=== PATIENT | female | born 1945 | race Caucasian/White ===

== ENCOUNTER → 2021-11-01 | Outpatient (CLI) | payer OTHER | END | disposition home or self-care (01) | LOC: RAH 10:32 | PROVIDERS: ATTEND Internal Medicine | DX: S89.91XA Unspecified injury of right lower leg, initial encounter (principal); S83.206A Unspecified tear of unspecified meniscus, current injury, right knee, initial encounter; M17.11 Unilateral primary osteoarthritis, right knee; Z98.890 Other specified postprocedural states; X58.XXXA Exposure to other specified factors, initial encounter; Y93.89 Activity, other specified; Y92.89 Other specified places as the place of occurrence of the external cause; Y99.8 Other external cause status | CPT/HCPCS: 73721 ==

== ENCOUNTER → 2024-11-09 | Outpatient (CLI) | payer OTHER ==
--- NOTE | 2024-11-09 09:18 | HMCIMG ---
DEXA BONE DENSITY SURVEY REASON: Age-related osteoporosis without current pathological fracture COMPARISON: None TECHNIQUE: DEXA bone densitometry was performed in the lumbar spine and left hip. FINDINGS: Mean bone mass density in the spine is 0.727 g/sq cm, T score -2.9, consistent with osteoporosis. Femoral neck T score is -1.4 corresponding with osteopenia. IMPRESSION: 1. Osteoporosis indicating a high fracture risk.
--- NOTE | 2024-11-09 10:18 | HMCIMG ---
US ABDOMINAL COMPLETE REASON: RUQ PAIN COMPARISON: None FINDINGS: There is mild fatty infiltration of the liver. There are no focal mass lesions. The liver is not enlarged.There is a normal-appearing gallbladder. Kidneys appear normal in size and appearance. There is no evidence of mass, stone or hydronephrosis. Spleen and common duct appear normal. Aorta and inferior vena cava appear normal. The pancreas appears normal as well. There is a probable focal solid mass posterior and inferior to the pancreas measuring 4.1 x 3.9 x 4.7 cm. This may be lymphadenopathy in the right peritoneum or near the root of the mesentery. CT is recommended for further evaluation. IMPRESSION: 1. Focal 4.1 x 4.7 cm solid mass, probably in the mesentery, CT recommended for further evaluation. 2. Mild hepatic steatosis.
== END | disposition home or self-care (01) ==
LOC: RAH 07:48
PROVIDERS: ATTEND Internal Medicine
DX: K76.0 Fatty (change of) liver, not elsewhere classified (principal); M81.0 Age-related osteoporosis without current pathological fracture; R10.11 Right upper quadrant pain
CPT/HCPCS: 76700; 77080

== ENCOUNTER → 2024-11-25 | Outpatient (CLI) | payer OTHER ==
[~2024-11-25] MED LIST: IOHEXOL 350 MG/ML 100ML INFUS..BTL IV ONE
--- NOTE | 2024-11-25 11:08 | HMCIMG ---
CT ABDOMEN W/WO CONTRAST HISTORY: Intermittent right upper abdominal pain COMPARISON: None TECHNIQUE: Multiple sequential axial images of the abdomen were obtained from the dome of the diaphragm through iliac crests. Patient was given 100 cc of Isovue through intravenous route. Oral contrast was given. FINDINGS: No pleural effusion is seen bilaterally. There is no evidence of parenchymal disease or pulmonary nodule of the visualized lower lungs. Degenerative changes are seen of the thoracolumbar spine. Moderate size hiatal is seen. Liver measures 15.5 cm. The liver, spleen, adrenal glands and pancreas are unremarkable. There is no evidence of hydronephrosis bilaterally. No evidence of renal stone is seen. Fecal material is seen in the colon. There are normal-sized retroperitoneal and mesenteric lymph nodes. No ascites is seen. Atherosclerotic changes are present. No CT evidence of acute appendicitis is seen. IMPRESSION: 1. Fecal material is seen in the colon. No ascites is seen. Hiatal hernia. CT was performed with one or more following dose reduction techniques: automated exposure control, adjustment of the mA and kv according to patient's size, or use of a iterative reconstruction technique.
== END | disposition home or self-care (01) ==
LOC: RAH 09:52
PROVIDERS: ATTEND Internal Medicine
DX: K44.9 Diaphragmatic hernia without obstruction or gangrene (principal); R10.9 Unspecified abdominal pain; R68.89 Other general symptoms and signs; M47.815 Spondylosis without myelopathy or radiculopathy, thoracolumbar region
CPT/HCPCS: 74170; Q9967

== ENCOUNTER → 2024-12-31 | Outpatient (CLI) | payer OTHER ==
--- NOTE | 2024-12-31 16:06 | HMCIMG ---
LEFT HIP, INCLUDING AP PELVIS, RADIOGRAPHS - 3 VIEWS INDICATION: Left hip pain COMPARISON: None FINDINGS: No acute fracture or subluxation identified. Both femoral heads are well formed without osteochondral erosion or radiographic evidence for avascular necrosis. No radiopaque foreign body noted. IMPRESSION: No evidence for fracture or dislocation.
--- NOTE | 2024-12-31 16:06 | HMCIMG ---
RIGHT RIBS RADIOGRAPHS - 5 VIEWS INDICATION: Right rib pain COMPARISON: None FINDINGS: No rib fracture identified. No intrinsic osseous abnormality detected. Visualized portions of the right lung are clear. No radiopaque foreign body noted. IMPRESSION: No rib fracture identified.
--- NOTE | 2024-12-31 16:07 | HMCIMG ---
LUMBAR SPINE RADIOGRAPHS - 2-3 VIEWS INDICATION: Back pain COMPARISON: None FINDINGS: AP, lateral, and coned-down lateral views. Mild to moderate lumbar levoscoliosis with apex at the L2-L3 level. Normal lordotic curvature of the lumbar spine is maintained. Five nonrib-bearing lumbar vertebral bodies are noted. No acute fracture or subluxation identified. Vertebral body heights are well-maintained. Moderate disc height loss at the L5-S1 level. Multilevel mild to moderate anterior endplate osteophytic spurring. Multilevel mild to moderate facet disease is most pronounced along the lower lumbar spine levels. Extensive stool burden. Mild calcific plaque is noted along the abdominal aortic and iliac vessel eid without aneurysmal dilation. IMPRESSION: Degenerative changes as described, without acute component. Findings suggesting constipation.
== END | disposition home or self-care (01) ==
LOC: RAH 15:13
PROVIDERS: ATTEND Internal Medicine
DX: M47.816 Spondylosis without myelopathy or radiculopathy, lumbar region (principal); R07.81 Pleurodynia; M25.552 Pain in left hip; M41.86 Other forms of scoliosis, lumbar region; I70.0 Atherosclerosis of aorta; M54.50 Low back pain, unspecified
CPT/HCPCS: 71100; 72100; 73502

== ENCOUNTER → 2025-01-31 | Outpatient (CLI) | payer OTHER ==
--- NOTE | 2025-01-31 15:45 | HMCIMG ---
CHEST 2VWS HISTORY: TB screening COMPARISON: None FINDINGS: Frontal and lateral projections of the chest were obtained. There is no acute pulmonary infiltrates or failure. The heart is not enlarged. No evidence of aortic calcification is seen. Degenerative changes are seen of the thoracolumbar spine. No radiographic evidence of acute pulmonary tuberculosis is seen. There may be due to hernia. IMPRESSION: 1. No acute pulmonary infiltrates.
== END | disposition home or self-care (01) ==
LOC: RAH 15:07
PROVIDERS: ATTEND Internal Medicine
DX: Z11.1 Encounter for screening for respiratory tuberculosis (principal); M47.815 Spondylosis without myelopathy or radiculopathy, thoracolumbar region
CPT/HCPCS: 71046